=== PATIENT | male | born 1950 | race Caucasian/White ===

== ENCOUNTER → 2016-12-14 | Outpatient (REF) | payer MEDICARE, BC ==
[2016-12-14 18:24] LABS: ALBUMIN/GLOBULIN RATIO 1.43 (1.00-1.93); ALKALINE PHOSPHATASE 87 U/L (45-117); ALT/SGPT 24 U/L (12-78); ANION GAP 7 MEQ/L (8-16); AST/SGOT 23 U/L (15-37); BILIRUBIN,TOTAL 1.2 MG/DL (0.2-1.0); BLOOD UREA NITROGEN 12 MG/DL (7-18); CARBON DIOXIDE LEVEL 28 MEQ/L (21-32); CHLORIDE LEVEL 101 MEQ/L (98-107); CHOLESTEROL LEVEL 206 MG/DL (<200); CREATININE FOR GFR 0.95 MG/DL (0.70-1.30); GLOMERULAR FILTRATION RATE > 60.0 (>49); GLUCOSE, FASTING 114 MG/DL (80-110); POTASSIUM SERUM 3.9 MEQ/L (3.5-5.1); SODIUM LEVEL 136 MEQ/L (136-145); TOTAL PROTEIN 6.8 GM/DL (6.4-8.2); TRIGLYCERIDES LEVEL 149 MG/DL (<150)
[2016-12-14 18:32] LABS: MEAN CORPUSCULAR HEMOGLOBIN 34.3 pg (27.0-33.0); MEAN CORPUSCULAR HGB CONC 35.4 g/dl (32.0-36.5); MEAN CORPUSCULAR VOLUME 96.9 fl (80.0-96.0)
== END ==
LOC: M SFHCCLAY 10:53
PROVIDERS: ATTEND Nurse Practitioner Family
DX: J30.2 Other seasonal allergic rhinitis (principal); E78.4 Other hyperlipidemia; E55.9 Vitamin D deficiency, unspecified

== ENCOUNTER → 2017-03-24 | Outpatient (REF) | payer MEDICARE, BC | LOC: M LAB REF 15:40 | PROVIDERS: ATTEND Nurse Practitioner Family | DX: L60.3 Nail dystrophy (principal); B35.1 Tinea unguium ==

== ENCOUNTER → 2017-03-24 | Outpatient (CLI) | payer MEDICARE, BC ==
--- NOTE | 2017-03-24 11:50 | REP ---
Bilateral carotid artery duplex ultrasound: Peak flow velocity analysis: RIGHT LEFT ICA Peak flow velocity cm/sec 96 91 ICA Diastolic flow velocity cm/sec 25 26 ICA/CCA Ratio 1.30 0.8 ECA Peak flow velocity cm/sec 71 64 CCA Peak flow velocity cm/sec 76 115 There is shallow atheromatous plaque in the bulbs bilaterally extending into the internal carotid artery and external carotid artery on the right and into the internal carotid artery on the left. Peak flow velocities are normal bilaterally. There is no stenosis on the right on the left. There is antegrade flow in the vertebral arteries bilaterally. Impression: There is no stenosis on the right on the left. Peak flow velocities indicate less than 50% narrowing bilaterally. Signed by Jorge A Farias MD 03/24/2017 11:41 A
== END ==
LOC: M RAD 09:57
PROVIDERS: ATTEND Family Medicine
DX: R09.89 Other specified symptoms and signs involving the circulatory and respiratory systems (principal); L60.3 Nail dystrophy; B35.1 Tinea unguium

== ENCOUNTER → 2017-04-06 | Outpatient (REF) | payer MEDICARE, BC | LOC: M SFHCCLAY 09:39 | PROVIDERS: ATTEND Nurse Practitioner Family | DX: E55.9 Vitamin D deficiency, unspecified (principal) ==

== ENCOUNTER → 2017-10-26 | Outpatient (REF) | payer MEDICARE, BC ==
[2017-10-26 11:22] LABS: HEMATOCRIT 45.2 % (42.0-52.0); HEMOGLOBIN 15.4 g/dl (13.5-17.5); MEAN CORPUSCULAR HEMOGLOBIN 32.3 pg (27.0-33.0); MEAN CORPUSCULAR HGB CONC 34.1 g/dl (32.0-36.5); MEAN CORPUSCULAR VOLUME 94.8 fl (80.0-96.0); PLATELET COUNT, AUTOMATED 192 10^3/uL (150-450); RED BLOOD COUNT 4.77 10^6/uL (4.30-6.10); RED CELL DISTRIBUTION WIDTH 11.5 % (11.5-14.5); WHITE BLOOD COUNT 4.7 10^3/uL (4.0-10.0)
[2017-10-26 11:37] LABS: ALBUMIN 3.9 GM/DL (3.2-5.2); ALBUMIN/GLOBULIN RATIO 1.39 (1.00-1.93); ALKALINE PHOSPHATASE 83 U/L (45-117); ALT/SGPT 22 U/L (12-78); ANION GAP 5 MEQ/L (8-16); AST/SGOT 22 U/L (7-37); BILIRUBIN,TOTAL 1.1 MG/DL (0.2-1.0); BLOOD UREA NITROGEN 12 MG/DL (7-18); CALCIUM LEVEL 8.7 MG/DL (8.8-10.2); CARBON DIOXIDE LEVEL 31 MEQ/L (21-32); CHLORIDE LEVEL 107 MEQ/L (98-107); CHOLESTEROL LEVEL 178 MG/DL (<200); CHOLESTEROL RISK RATIO 2.225 (<5); CREATININE FOR GFR 0.99 MG/DL (0.70-1.30); GLOMERULAR FILTRATION RATE > 60.0 (>49); GLUCOSE, FASTING 99 MG/DL (70-100); HDL CHOLESTEROL 80 MG/DL (>40); LDL CHOLESTEROL 80.2 MG/DL (<100); NON-HDL-C 98 MG/DL; POTASSIUM SERUM 4.2 MEQ/L (3.5-5.1); SODIUM LEVEL 143 MEQ/L (136-145); TOTAL PROTEIN 6.7 GM/DL (6.4-8.2); TRIGLYCERIDES LEVEL 89 MG/DL (<150)
[2017-10-26 11:41] LABS: TOTAL 25(OH) VITAMIN D 53.5 NG/ML (30.0-100.0)
== END ==
LOC: M SFHCCLAY 07:25
DX: E78.4 Other hyperlipidemia (principal); Z12.5 Encounter for screening for malignant neoplasm of prostate; E55.9 Vitamin D deficiency, unspecified
CPT/HCPCS: 80053

== ENCOUNTER → 2017-11-26 | Outpatient (CLI) | payer MEDICARE, BC | LOC: M WHC 13:19 | DX: Z13.820 Encounter for screening for osteoporosis (principal); M81.0 Age-related osteoporosis without current pathological fracture | CPT/HCPCS: 77080 ==

== ENCOUNTER → 2018-05-12 | Outpatient (CLI) | payer MEDICARE, BC ==
--- NOTE | 2018-05-12 14:48 | REP ---
REASON FOR EXAM: Followup from 11/18/[address] examination of the lungs which showed a 4 mm sized nodule in the left lower lobe. The lack of intravenous contrast decreases the sensitivity of the exam. There is no evidence of mediastinal or hilar adenopathy. The maximal AP dimension of the ascending aorta is 3.7 cm. This suggests mild ectasia. There are no pleural or pericardial effusions. The imaged upper abdomen and imaged osseous structures are within normal limits. Evaluation of the lung sevilla shows a stable 4 mm sized nodule in the anterobasal segment of the left lower lobe. There is an additional stable 3 mm sized nodule in the right middle lobe. There are no new abnormal nodules, masses, or opacities. IMPRESSION: 1. Stable pulmonary nodules as described above. According to the revised Fleischner's Society criteria these nodules represent category 2 lesions for which yearly low dose screening CT examination of the lungs is recommended provided the patient's risk factors remain high. 2. Ascending aortic measurement as described above. This needs to be correlated clinically and in conjunction with the patient's body surface area and history. If necessary obtain contrast enhanced CT for further evaluation. Electronically Signed by Earl Clemente DO 05/12/2018 03:53 P
== END ==
LOC: M RAD 13:47
PROVIDERS: ATTEND Nurse Practitioner Family
DX: R91.8 Other nonspecific abnormal finding of lung field (principal)

== ENCOUNTER → 2019-01-31 | Outpatient (REF) | payer MEDICARE, BC ==
[2019-01-31 18:24] LABS: HEMATOCRIT 45.9 % (42.0-52.0); HEMOGLOBIN 15.7 g/dl (13.5-17.5); MEAN CORPUSCULAR HEMOGLOBIN 32.6 pg (27.0-33.0); MEAN CORPUSCULAR HGB CONC 34.2 g/dl (32.0-36.5); MEAN CORPUSCULAR VOLUME 95.4 fl (80.0-96.0); PLATELET COUNT, AUTOMATED 156 10^3/uL (150-450); RED BLOOD COUNT 4.81 10^6/uL (4.30-6.10); WHITE BLOOD COUNT 4.8 10^3/uL (4.0-10.0)
[2019-01-31 18:36] LABS: ALBUMIN 3.9 GM/DL (3.2-5.2); ALT/SGPT 25 U/L (12-78); BILIRUBIN,TOTAL 1.2 MG/DL (0.2-1.0); BLOOD UREA NITROGEN 13 MG/DL (7-18); CALCIUM LEVEL 8.6 MG/DL (8.8-10.2); CARBON DIOXIDE LEVEL 28 MEQ/L (21-32); CHLORIDE LEVEL 105 MEQ/L (98-107); CHOLESTEROL LEVEL 185 MG/DL (<200); CHOLESTEROL RISK RATIO 2.283 (<5); CREATININE FOR GFR 0.97 MG/DL (0.70-1.30); GLOMERULAR FILTRATION RATE > 60.0 (>42); GLUCOSE, FASTING 114 MG/DL (70-100); HDL CHOLESTEROL 81 MG/DL (>40); LDL CHOLESTEROL 87 MG/DL (<100); NON-HDL-C 104 MG/DL; POTASSIUM SERUM 3.9 MEQ/L (3.5-5.1); SODIUM LEVEL 140 MEQ/L (136-145); TOTAL 25(OH) VITAMIN D 26.2 NG/ML (30.0-100.0); TRIGLYCERIDES LEVEL 85 MG/DL (<150)
== END ==
LOC: M SFHCCLAY 10:17
PROVIDERS: ATTEND Nurse Practitioner Family
DX: Z12.5 Encounter for screening for malignant neoplasm of prostate (principal); E78.49 Other hyperlipidemia; E55.9 Vitamin D deficiency, unspecified
CPT/HCPCS: 80053; 80061; 82306; 85027; G0103

== ENCOUNTER → 2019-02-14 | Outpatient (CLI) | payer MEDICARE, BC ==
--- NOTE | 2019-02-14 16:21 | REP ---
CT of the chest without IV contrast for follow up of lung nodules: Comparisons are 11/18/2017 and 05/12/2018. There is a 4 mm lung nodule inferiorly in the anterior segment of the left lower lobe on image 92, unchanged from both prior studies. There is a 3 ml lung nodule in the right middle lobe on image 59, also unchanged from both prior studies. No new lung nodules are identified. There are no infiltrates. There are no pleural effusions. There is no mediastinal or axillary adenopathy. The study is insensitive for hilar adenopathy in the absence of IV contrast. The unenhanced thoracic aorta is unremarkable. Cardiac size is normal. The visualized upper abdominal contents are unremarkable. Impression: The two known pulmonary nodules have been stable for over 1 year. This converts these nodules to category II lung nodules with the probability of malignancy less than 1%. Depending on risk factors consider annual follow-up low-dose lung screening CT. Electronically Signed by Jorge A Farias MD 02/14/2019 04:13 P
== END ==
LOC: M RAD 15:04
PROVIDERS: ATTEND Nurse Practitioner Family
DX: R91.8 Other nonspecific abnormal finding of lung field (principal)

== ENCOUNTER → 2019-03-10 | Outpatient (CLI) | payer MEDICARE, BC ==
[~2019-03-10] MED LIST: E-Z-GAS II EFFERVESCENT PACKET (SODIUM BICARB./CITRIC ACID/SIMETHICONE) As Ordered ONE; E-Z-HD 98% w/w 340GM SUSP BTL As Ordered ONE; E-Z-PAQUE 96% w/w SUSP 176GM BTL As Ordered ONE
--- NOTE | 2019-03-10 19:42 | REP ---
Examination Requested: Esophagram Barium Swallow Reason For Exam/Comment: Dysphasia Esophagram: The procedure was performed GUCCI Dang, under the direct supervision of Dr. Quiroz. The images were reviewed with Dr. Quiroz. A single PA chest x-ray is submitted as a anesthesia assistant film. The superior mediastinal structures are midline. The heart size is within normal limits. The lungs are clear. There is degenerative disc disease of the cervical spine with anterior osteophytes of the C4-5 and C5-6 level indenting the posterior wall of the esophagus. Bilateral calcifications noted in both carotid arteries. Liquid barium and gas producing granules were given in the erect position as well as liquid barium in the prone oblique position, in order to perform a double contrast esophagram examination. Oral and pharyngeal stages of the examination were unremarkable. Esophageal transport is efficient and there is no esophagitis, stricture, or mucosal ring noted. There is no hiatal hernia noted. Gastroesophageal reflux was not visualized throughout the course of the exam. Impression: 1. Degenerative disc disease of the cervical spine as described above. 2. Bilateral carotid artery calcifications. 3. Unremarkable esophagram. 0.3 minutes of fluoroscopy time was utilized for this procedure. Some fluoroscopic images are performed with last image hold technology. These images require no additional radiation. Reviewed by GUCCI Lentz 03/10/2019 04:31 P Electronically Signed by Kash Quiroz MD 03/10/2019 07:33 P
== END ==
LOC: M RAD 08:51
PROVIDERS: ATTEND Physician Assistant Medical
DX: R13.10 Dysphagia, unspecified (principal)

== ENCOUNTER → 2019-12-18 | Emergency (ER) | payer MEDICARE, BC ==
[~2019-12-18] MED LIST changes: -E-Z-GAS II EFFERVESCENT PACKET (SODIUM BICARB./CITRIC ACID/SIMETHICONE) As Ordered ONE; -E-Z-HD 98% w/w 340GM SUSP BTL As Ordered ONE; -E-Z-PAQUE 96% w/w SUSP 176GM BTL As Ordered ONE; +PANT40TA29 PO; +RABIES VACCINE HUMAN 2.5 INTERNATIONAL UNITS/ML VIAL (90675) As Ordered ONE; +SIMV40TA20 PO
== END | disposition home or self-care (01) ==
LOC: M ED 18:00
DX: Z20.3 Contact with and (suspected) exposure to rabies (principal)

== ENCOUNTER → 2019-12-22 | Emergency (ER) | payer MEDICARE, BC ==
[~2019-12-22] MED LIST changes: -RABIES VACCINE HUMAN 2.5 INTERNATIONAL UNITS/ML VIAL (90675) As Ordered ONE
== END | disposition home or self-care (01) ==
LOC: M ED 10:59
DX: Z20.3 Contact with and (suspected) exposure to rabies (principal); Z23 Encounter for immunization; W54.0XXA Bitten by dog, initial encounter; Y92.9 Unspecified place or not applicable

== ENCOUNTER 2019-12-29 11:30 | Emergency (ER) | payer MEDICARE, BC ==
[~2019-12-29 11:30] MED LIST changes: -PANT40TA29 PO; +RABIES VACCINE HUMAN 2.5 INTERNATIONAL UNITS/ML VIAL (90675) As Ordered ONE; +RABIES VACCINE HUMAN 2.5 INTERNATIONAL UNITS/ML VIAL (90675) ONE
[2020-01-15] MEDS ORDERED: PANT40TA29 PO (14:36)
== END 2019-12-29 11:38 | disposition home or self-care (01) ==
LOC: M ED 11:30
DX: Z23 Encounter for immunization (principal); Z20.3 Contact with and (suspected) exposure to rabies; W54.0XXA Bitten by dog, initial encounter; E78.5 Hyperlipidemia, unspecified; K21.9 Gastro-esophageal reflux disease without esophagitis

== ENCOUNTER → 2020-01-11 | Outpatient (CLI) | payer MEDICARE, BC ==
[~2020-01-11] MED LIST changes: +PANT40TA29 PO; -RABIES VACCINE HUMAN 2.5 INTERNATIONAL UNITS/ML VIAL (90675) As Ordered ONE; -RABIES VACCINE HUMAN 2.5 INTERNATIONAL UNITS/ML VIAL (90675) ONE
== END ==
LOC: M LABSMTC 11:24
PROVIDERS: ATTEND Anesthesiology
DX: Z01.812 Encounter for preprocedural laboratory examination (principal); Z20.828 Contact with and (suspected) exposure to other viral communicable diseases

== ENCOUNTER 2020-01-16 12:30 | Day surgery (SDC) | payer MEDICARE, BC ==
[~2020-01-16] VITALS: Ht 177.8 cm; Wt 71.7 kg
[2020-01-16] MEDS ORDERED: propofoL 200 MG/20 ML VIAL As Ordered ONE (12:39)
[2020-01-16] MEDS ORDERED: LIDOCAINE 2% 100MG/5ML SDV (FOR ANES.) As Ordered ONE (12:39)
[2020-01-16] MEDS ORDERED: NS 1,000 ML IV ONE (13:30)
[2020-01-16 14:45] VITALS: BP 171/81
--- NOTE | 2020-01-31 11:36 | ROOR ---
Patient Name: Segundo Suarez Procedure Date: 01/16/2020 11:32 AM Date of : 1950 Age: 69 Room: [facility] Gender: Male Note Status: Finalized Procedure: Upper GI endoscopy Indications: Dysphagia, Follow-up of gastro-esophageal reflux disease Providers: Otilio Yarbrough MD Referring MD: Adeline Mott NP Requesting Provider: Medicines: Monitored Anesthesia Care Complications: No immediate complications. Procedure: Pre-Anesthesia Assessment: - Prior to the procedure, a History and Physical was performed, and patient medications and allergies were reviewed. The patient is competent. The risks and benefits of the procedure and the sedation options and risks were discussed with the patient. All questions were answered and informed consent was obtained. Patient identification and proposed procedure were verified by the physician, the nurse and the anesthesiologist in the procedure room. Mental Status Examination: alert and oriented. Airway Examination: normal oropharyngeal airway and neck mobility. Respiratory Examination: clear to auscultation. CV Examination: normal. Prophylactic Antibiotics: The patient does not require prophylactic antibiotics. Prior Anticoagulants: The patient has taken no previous anticoagulant or antiplatelet agents. ASA Grade Assessment: II - A patient with mild systemic disease. After reviewing the risks and benefits, the patient was deemed in satisfactory condition to undergo the procedure. The anesthesia plan was to use monitored anesthesia care (MAC). Immediately prior to administration of medications, the patient was re-assessed for adequacy to receive sedatives. The heart rate, respiratory rate, oxygen saturations, blood pressure, adequacy of pulmonary ventilation, and response to care were monitored throughout the procedure. The physical status of the patient was re-assessed after the procedure. The Endoscope was introduced through the mouth, and advanced to the second part of duodenum. The upper GI endoscopy was accomplished without difficulty. The patient tolerated the procedure well. Findings: LA Grade A (one or more mucosal breaks less than 5 mm, not extending between tops of 2 mucosal folds) esophagitis with no bleeding was found in the distal esophagus. Biopsies were taken with a cold forceps for histology. Verification of patient identification for the specimen was done by the physician and nurse using the patient's name, date and medical record number. A widely patent and non-obstructing Schatzki ring was found in the distal esophagus. Biopsies were taken with a cold forceps for histology. Scattered mild inflammation characterized by erythema and granularity was found in the gastric antrum. Biopsies were taken with a cold forceps for Helicobacter pylori testing. The duodenal bulb and second portion of the duodenum were normal. Impression: - LA Grade A reflux esophagitis. Biopsied. - Widely patent and non-obstructing Schatzki ring. Biopsied. - Gastritis. Biopsied. - Normal duodenal bulb and second portion of the duodenum. Recommendation: - Patient has a contact number available for emergencies. The signs and symptoms of potential delayed complications were discussed with the patient. Return to normal activities tomorrow. Written discharge instructions were provided to the patient. - High fiber diet. - Continue present medications. - Use sucralfate suspension 1 gram PO BID for 4 weeks. - Await pathology results. - Follow an antireflux regimen. - Telephone GI clinic for pathology results in 2 weeks. - Return to GI clinic if persistent symptoms or new symptoms. - Return to primary care physician. Otilio Yarbrough MD Otilio Yarbrough MD 01/16/2020 2:33:21 PM Number of Addenda: 0 Note Initiated On: 01/16/2020 11:32 AM Estimated Blood Loss: Estimated blood loss was minimal.
== END 2020-01-16 15:00 | disposition home or self-care (01) ==
LOC: M OPP 12:30
PROVIDERS: ATTEND Internal Medicine Gastroenterology
DX: K21.0 Gastro-esophageal reflux disease with esophagitis (principal); K22.2 Esophageal obstruction; K29.70 Gastritis, unspecified, without bleeding; R13.10 Dysphagia, unspecified; R12 Heartburn; Z79.899 Other long term (current) drug therapy

== ENCOUNTER → 2020-04-04 | Outpatient (CLI) | payer MEDICARE, BC ==
--- NOTE | 2020-04-04 15:14 | REP ---
INDICATION: PULMONARY NODULES. COMPARISON: Low-dose CT 11/10/2017; CT 02/14/2019, 05/12/2018 TECHNIQUE: Low-dose CT lung screening protocol FINDINGS: On image 59 is a stable 3 mm noncalcified nodule the lateral segment right middle lobe. There is also a stable 4 mm nodule in the inferior lingular segment anteriorly left upper lobe at the lung base peripherally. No new pulmonary nodules, acute infiltrate, parenchymal mass, pleural effusion, pleural thickening or calcified pleural plaques. Some emphysematous changes are seen in the mid and upper lung zones. These are all stable. There is atherosclerotic calcification of the aorta without gross aneurysm. Sternum, manubrium, ribs and spine show no evidence of an acute destructive lesion IMPRESSION: 1. Lung-RADS category 2 benign, benign finding. Stable examination with 2 nodules as described. No new or additional findings since the prior studies. Patients with this category of finding have less than 1% chance of malignancy at the time of this examination. Recommend annual follow-up low-dose CT for patients with high risk for malignancy. <Electronically signed by James Holliday > 04/04/20 [id number]
== END ==
LOC: M RAD 14:06
PROVIDERS: ATTEND Nurse Practitioner Family
DX: R91.8 Other nonspecific abnormal finding of lung field (principal)

== ENCOUNTER → 2020-10-15 | Outpatient (REF) | payer MEDICARE, BC ==
[2020-10-15 16:42] LABS: HEMATOCRIT 48.5 % (42.0-52.0); HEMOGLOBIN 16.4 g/dl (13.5-17.5); MEAN CORPUSCULAR HEMOGLOBIN 32.6 pg (27.0-33.0); MEAN CORPUSCULAR HGB CONC 33.8 g/dl (32.0-36.5); MEAN CORPUSCULAR VOLUME 96.4 fl (80.0-96.0); PLATELET COUNT, AUTOMATED 192 10^3/uL (150-450); RED BLOOD COUNT 5.03 10^6/uL (4.30-6.10); WHITE BLOOD COUNT 5.7 10^3/uL (4.0-10.0)
[2020-10-15 17:03] LABS: ALBUMIN 4.1 GM/DL (3.2-5.2); ALT/SGPT 21 U/L (12-78); BILIRUBIN,TOTAL 1.1 MG/DL (0.2-1.0); BLOOD UREA NITROGEN 14 MG/DL (7-18); CALCIUM LEVEL 9.3 MG/DL (8.8-10.2); CARBON DIOXIDE LEVEL 30 MEQ/L (21-32); CHLORIDE LEVEL 102 MEQ/L (98-107); CHOLESTEROL LEVEL 175 MG/DL (<200); CHOLESTEROL RISK RATIO 2.083 (<5); CREATININE FOR GFR 0.96 MG/DL (0.70-1.30); GLOMERULAR FILTRATION RATE > 60.0 (>42); GLUCOSE, FASTING 98 MG/DL (70-100); HDL CHOLESTEROL 84 MG/DL (>40); LDL CHOLESTEROL 78 MG/DL (<100); NON-HDL-C 91 MG/DL; POTASSIUM SERUM 4.4 MEQ/L (3.5-5.1); SODIUM LEVEL 139 MEQ/L (136-145); TOTAL PROTEIN 6.9 GM/DL (6.4-8.2); TRIGLYCERIDES LEVEL 66 MG/DL (<150)
== END ==
LOC: M SFHCCLAY 09:41
PROVIDERS: ATTEND Nurse Practitioner Family
DX: J30.2 Other seasonal allergic rhinitis (principal); E78.5 Hyperlipidemia, unspecified; E55.9 Vitamin D deficiency, unspecified; Z79.899 Other long term (current) drug therapy

== ENCOUNTER → 2020-10-24 | Outpatient (REF) | payer MEDICARE, BC | LOC: M SFHCCLAY 09:14 | PROVIDERS: ATTEND Nurse Practitioner Family | DX: Z12.5 Encounter for screening for malignant neoplasm of prostate (principal) ==

== ENCOUNTER → 2021-10-27 | Outpatient (CLI) | payer MEDICARE, BC | LOC: M RAD 09:01 | PROVIDERS: ATTEND Nurse Practitioner Family ==

== ENCOUNTER → 2022-01-22 | Outpatient (REF) | payer MEDICARE, BC ==
[2022-01-22 17:30] LABS: BASO % 0.6 % (0.0-1.0); EOS # 0.2 10^3/uL (0.0-0.5); EOS % 3.7 % (0.0-3.0); HEMATOCRIT 45.6 % (42.0-52.0); HEMOGLOBIN 15.4 g/dl (13.5-17.5); LYMPH # 1.1 10^3/uL (1.5-5.0); LYMPH % 23.1 % (24.0-44.0); MEAN CORPUSCULAR HEMOGLOBIN 32.8 pg (27.0-33.0); MEAN CORPUSCULAR HGB CONC 33.8 g/dl (32.0-36.5); MEAN CORPUSCULAR VOLUME 97.2 fl (80.0-96.0); MONO # 0.5 10^3/uL (0.0-0.8); NEUTROPHILS % 61.4 % (36.0-66.0); PLATELET COUNT, AUTOMATED 178 10^3/uL (150-450); RED BLOOD COUNT 4.69 10^6/uL (4.30-6.10); WHITE BLOOD COUNT 4.8 10^3/uL (4.0-10.0)
[2022-01-22 18:19] LABS: ALBUMIN 3.9 GM/DL (3.2-5.2); ALT/SGPT 18 U/L (12-78); BILIRUBIN,TOTAL 1.6 MG/DL (0.2-1.0); BLOOD UREA NITROGEN 14 MG/DL (7-18); CALCIUM LEVEL 9.3 MG/DL (8.8-10.2); CARBON DIOXIDE LEVEL 27 MEQ/L (21-32); CHLORIDE LEVEL 105 MEQ/L (98-107); CHOLESTEROL LEVEL 172 MG/DL (<200); CHOLESTEROL RISK RATIO 2.047 (<5); CREATININE FOR GFR 0.88 MG/DL (0.70-1.30); FREE T4 0.89 NG/DL (0.76-1.46); GLOMERULAR FILTRATION RATE > 60.0 (>42); GLUCOSE, FASTING 97 MG/DL (70-100); HDL CHOLESTEROL 84 MG/DL (>40); LDL CHOLESTEROL 71 MG/DL (<100); NON-HDL-C 88 MG/DL; POTASSIUM SERUM 4.1 MEQ/L (3.5-5.1); SODIUM LEVEL 138 MEQ/L (136-145); TOTAL PROTEIN 6.5 GM/DL (6.4-8.2); TRIGLYCERIDES LEVEL 83 MG/DL (<150)
== END ==
LOC: M SFHCCLAY 09:53
PROVIDERS: ATTEND Nurse Practitioner Family
DX: Z00.00 Encounter for general adult medical examination without abnormal findings (principal); K21.9 Gastro-esophageal reflux disease without esophagitis; E78.5 Hyperlipidemia, unspecified; E55.9 Vitamin D deficiency, unspecified; R91.8 Other nonspecific abnormal finding of lung field; Z12.5 Encounter for screening for malignant neoplasm of prostate; Z79.899 Other long term (current) drug therapy
CPT/HCPCS: 80053; 80061; 82306; 84439; 84443; 85025; G0103

== ENCOUNTER → 2022-11-03 | Outpatient (REF) | payer MEDICARE, BC ==
[2022-11-03 11:49] LABS: BASO % 0.6 % (0.0-1.0); EOS # 0.2 10^3/uL (0.0-0.5); EOS % 2.7 % (0.0-3.0); HEMOGLOBIN 15.2 g/dl (13.5-17.5); LYMPH # 1.4 10^3/uL (1.5-5.0); LYMPH % 19.6 % (24.0-44.0); MEAN CORPUSCULAR HGB CONC 34.5 g/dl (32.0-36.5); MEAN CORPUSCULAR VOLUME 95.4 fl (80.0-96.0); MONO # 0.8 10^3/uL (0.0-0.8); MONO % 10.8 % (2.0-8.0); NEUTROPHILS # 4.7 10^3/uL (1.5-8.5); NEUTROPHILS % 65.9 % (36.0-66.0); PLATELET COUNT, AUTOMATED 189 10^3/uL (150-450); RED BLOOD COUNT 4.61 10^6/uL (4.30-6.10); WHITE BLOOD COUNT 7.1 10^3/uL (4.0-10.0)
[2022-11-03 12:09] LABS: THYROID STIMULATING HORMONE 1.427 uIU/ML (0.55-4.78)
[2022-11-03 12:10] LABS: TOTAL 25(OH) VITAMIN D 56.2 NG/ML (20.0-100.0)
[2022-11-03 12:11] LABS: ALBUMIN 3.7 G/DL (3.2-5.2); ALKALINE PHOSPHATASE 106 U/L (46-116); ALT/SGPT 15 U/L (7.0-40); AST/SGOT 15 U/L (<34); BILIRUBIN,TOTAL 1.3 MG/DL (0.3-1.2); BLOOD UREA NITROGEN 13 MG/DL (9-23); CALCIUM LEVEL 8.8 MG/DL (8.3-10.6); CARBON DIOXIDE LEVEL 31 MMOL/L (20-31); CHLORIDE LEVEL 104 MMOL/L (98-107); CHOLESTEROL LEVEL 159 MG/DL (<200); CHOLESTEROL RISK RATIO 2.15 (<5); CREATININE FOR GFR 0.95 MG/DL (0.70-1.30); GLOMERULAR FILTRATION RATE > 60.0 (>42); GLUCOSE, FASTING 108 MG/DL (74-106); HDL CHOLESTEROL 73.9 MG/DL (>40); LDL CHOLESTEROL 70.3 MG/DL (<100); NON-HDL-C 85.1 MG/DL; POTASSIUM SERUM 4.2 MMOL/L (3.5-5.1); SODIUM LEVEL 142 MMOL/L (136-145); TOTAL PROTEIN 6.3 G/DL (5.7-8.2); TRIGLYCERIDES LEVEL 74 MG/DL (<150)
[2022-11-03 12:12] LABS: FREE T4 0.86 NG/DL (0.89-1.76)
== END ==
LOC: M SFHCCLAY 07:20
PROVIDERS: ATTEND Nurse Practitioner Family
DX: Z00.00 Encounter for general adult medical examination without abnormal findings (principal); K21.9 Gastro-esophageal reflux disease without esophagitis; E78.5 Hyperlipidemia, unspecified; E55.9 Vitamin D deficiency, unspecified; R91.8 Other nonspecific abnormal finding of lung field; Z79.899 Other long term (current) drug therapy

== ENCOUNTER → 2023-01-26 | Outpatient (CLI) | payer MEDICARE, BC | LOC: M RAD 10:31 | PROVIDERS: ATTEND Nurse Practitioner Family | DX: R91.8 Other nonspecific abnormal finding of lung field (principal) ==